=== PATIENT | male | born 1975 | race Caucasian/White ===

== ENCOUNTER 2020-08-24 14:32 | Outpatient (REF) | payer OTHER, SELFPAY ==
--- NOTE | 2020-08-24 | US_ITS ---
EXAMINATION: US RETROPERITONEAL LIMITED (RENAL ONLY) CLINICAL INFORMATION: Cyst of kidney. COMPARISON: Ultrasound kidneys and bladder 08/14/2019. TECHNIQUE: Real-time imaging of the kidneys. FINDINGS: RIGHT KIDNEY: 11.6 x 5.9 x 5.9 cm (SAG x AP x TRV). The kidney is normal in size, contour, and echogenicity. Renal cortical thickness is normal. No calculi or focal parenchymal lesions. No hydronephrosis. LEFT KIDNEY: 11.4 x 5.8 x 5.4 cm (SAG x AP x TRV). The kidney is normal in size, contour, and echogenicity. Renal cortical thickness is normal. No calculi or focal parenchymal lesions. No hydronephrosis. US/US renal BI IMPRESSION: Unremarkable renal ultrasound.
== END 2020-08-24 14:33 | disposition home or self-care (01) ==
LOC: HO.HMGCX 14:32
PROVIDERS: PCP Nurse Practitioner Family; Visit Provider Urology
DX: N28.1 Cyst of kidney, acquired (principal)
CPT/HCPCS: 76775

== ENCOUNTER → 2020-09-29 09:02 | Outpatient (BNVA) | payer OTHER, SELFPAY | PROVIDERS: PCP Nurse Practitioner Family; Referring Provider Nurse Practitioner Family; Visit Provider Urology | DX: Z76.89 Persons encountering health services in other specified circumstances (principal) ==

== ENCOUNTER 2020-10-20 09:09 | Outpatient (REF) | payer OTHER, SELFPAY ==
--- NOTE | 2020-10-20 12:34 | XR_ITS ---
EXAMINATION: XR KNEE, BILATERAL XR KNEE, RIGHT CLINICAL INFORMATION: Pain in the knee COMPARISON: 07/02/2016 TECHNIQUE: AP standing view of both knees. Lateral and sunrise views of the right knee. FINDINGS: Right knee: No fracture or subluxation. Mild medial compartment joint space narrowing. Remaining compartmental joint spaces are maintained. Small marginal osteophytes are seen at all compartments. Evidence of prior ACL reconstruction. Small joint effusion noted. Left knee: On this single view there is mild narrowing of the medial compartment. No fracture or malalignment. XR/XR knee RT 2V IMPRESSION: Mild tricompartmental degenerative changes of the right knee. Small joint effusion. Evidence of prior ACL reconstruction.
--- NOTE | 2020-10-20 12:34 | XR_ITS ---
EXAMINATION: XR KNEE, BILATERAL XR KNEE, RIGHT CLINICAL INFORMATION: Pain in the knee COMPARISON: 07/02/2016 TECHNIQUE: AP standing view of both knees. Lateral and sunrise views of the right knee. FINDINGS: Right knee: No fracture or subluxation. Mild medial compartment joint space narrowing. Remaining compartmental joint spaces are maintained. Small marginal osteophytes are seen at all compartments. Evidence of prior ACL reconstruction. Small joint effusion noted. Left knee: On this single view there is mild narrowing of the medial compartment. No fracture or malalignment. 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 Small joint effusion. Evidence of prior ACL reconstruction.
== END 2020-10-20 09:10 | disposition home or self-care (01) ==
LOC: HO.HOSX 09:09
PROVIDERS: Visit Provider Orthopaedic Surgery
DX: M23.91 Unspecified internal derangement of right knee (principal); Z98.890 Other specified postprocedural states
CPT/HCPCS: 73560; 73565; 99202

== ENCOUNTER 2020-11-03 12:35 | Outpatient (REF) | payer OTHER, SELFPAY ==
--- NOTE | ~2020-11-03 | MR_ITS ---
EXAMINATION: MR KNEE WITHOUT CONTRAST, RIGHT CLINICAL INFORMATION: Knee pain status post ACL reconstruction. COMPARISON: MRI 07/29/2016 TECHNIQUE: MRI of the knee without contrast was performed using routine sequences on a high-field scanner. FINDINGS: MENISCI: Medial Meniscus: Again demonstrated is a bucket-handle tear of the medial meniscus. Portions of the posterior horn remnant are markedly attenuated. Overall similar appearance. Lateral Meniscus: Intact LIGAMENTS: Cruciate: Complete or near complete chronic tear of the ACL graft with scarring or displaced graft fibers projecting anteriorly. This also is similar to previous. The posterior cruciate ligament appears intact. Collateral: Intact EXTENSOR MECHANISM: Intact ARTICULAR CARTILAGE/BONE: Patellofemoral Compartment: Fissuring of the cartilage of the medial patellar facet is similar. A chondral fissure of the lateral facet is less conspicuous. Medial Compartment: There is a new area of articular cartilage irregularity measuring approximately 1.4 x 0.8 cm involving the posterior weightbearing medial femoral condyle which is new. A portion of this appears full thickness, with underlying bone marrow edema. Small marginal osteophytes. Lateral Compartment: Small marginal osteophytes. JOINT FLUID AND BURSAE: Small joint effusion. The ganglion extending along the popliteus muscle on the prior study has decreased in size. 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 Redemonstration of a bucket handle tear of the medial meniscus. There is a new area of cartilage loss and irregularity with underlying marrow edema of the posterior weightbearing medial femoral condyle. 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 Small joint effusion.
== END 2020-11-03 12:36 | disposition home or self-care (01) ==
LOC: HO.MRI 12:35
PROVIDERS: Visit Provider Orthopaedic Surgery
DX: M23.90 Unspecified internal derangement of unspecified knee (principal); Z98.890 Other specified postprocedural states
CPT/HCPCS: 73721

== ENCOUNTER → 2020-11-16 11:29 | Outpatient (BNVA) | payer OTHER, SELFPAY | PROVIDERS: PCP Nurse Practitioner Family; Visit Provider Orthopaedic Surgery ==

== ENCOUNTER 2020-12-08 07:22 | Day surgery (SDC) | payer OTHER, SELFPAY ==
--- NOTE | 2020-12-06 15:32 | HO.ANESPROP2 ---
Documented by User: Ekta Delcid 12/06/20 15:33 HPI - Anesthesia Eval Consult details Narrative: 45yo M for Right Knee Arthroscopy [facility]LY [facility] Active Problems Active Problems: All Active Problems (Updated 11/21/20 @ 08:24 by Hans Hatch MD) Deficiency of anterior cruciate ligament of right knee (Acute) Tear of medial meniscus of right knee (Acute) Knee locking (Acute) History of repair of ACL (Acute) Renal cyst (Acute) Past Medical History Medical History Knee locking Family History Family History Father Heart disease Pneumonia Mother Arthritis Brother No problems noted. Brother No problems noted. Brother No problems noted. Sister No problems noted. Surgical History Surgical History H/O right knee surgery History of mandibular surgery History of repair of ACL Social History Social History Alcohol intake: current Smoking Status: Current every day smoker Cigarettes Per Day: 20 Use of substances other than those prescribed or required for medical reasons: Yes Substance Use Frequency: Occasionally Advance Directives: No Advance Directives Information Provided: Yes Current occupational status: employed and unemployed Current occupation: right handed Meds Allergies Allergy/AdvReac Type Severity Reaction Status Date / Time No Known Allergies Allergy Verified 12/08/20 07:38 [No Known Allergies*] Home Medications Medication Instructions Recorded Confirmed Last Taken Type ibuprofen 600 mg tablet 600 mg PO Q6H PRN 10/20/20 12/01/20 Unknown History sildenafil 1 tab PO DAILY PRN 12/01/20 12/01/20 Unknown History Exam Exam Date and Time: December 06, 2020 153 Assessment and Plan Assessment Anesthesia Assessment: Chart Reviewed Documented by User: Joreg Diaz MD 12/08/20 09:11 [facility] Past Medical History Medical History Knee locking Family History Family History Father Heart disease Pneumonia Mother Arthritis Brother No problems noted. Brother No problems noted. Brother No problems noted. Sister No problems noted. Surgical History Surgical History H/O right knee surgery History of mandibular surgery History of repair of ACL Social History Social History Alcohol intake: current Smoking Status: Current every day smoker Cigarettes Per Day: 20 Use of substances other than those prescribed or required for medical reasons: Yes Substance Use Frequency: Occasionally Advance Directives: No Advance Directives Information Provided: Yes Current occupational status: employed and unemployed Current occupation: right handed Meds Allergies Allergy/AdvReac Type Severity Reaction Status Date / Time No Known Allergies Allergy Verified 12/08/20 07:38 [No Known Allergies*] Home Medications Medication Instructions Recorded Confirmed Last Taken Type ibuprofen 600 mg tablet 600 mg PO Q6H PRN 10/20/20 12/01/20 Unknown History sildenafil 1 tab PO DAILY PRN 12/01/20 12/01/20 Unknown History Exam Airway Mallampati Class: II TM Dist: >3cm Neck ROM: Full Loose/Missing/Broken Teeth: No Heart: RRR Other: thick wiggins Assessment and Plan Assessment Anesthesia Assessment: Anesthesia Plan Discussed and Chart Reviewed Final Anesthetic Review NPO: Yes ASA Class: II Final Preanesthetic Review: No Changes in Pt Med Stat, Meds/Allgs Chart Reviewed, Consent Obtained/Reviewed and Anes Risks/Benef Reviewed Patient Risk: Intermediate Procedure Risk: Low Anesthetic Plan Anesthetic Plan: GA Disposition: Standard PACU
[2020-12-08] VITALS (7 sets, daily range): BP systolic 112–132; BP diastolic 81–98; PULSE 73–84; RESP 16; TEMP 36.1–36.6; O2SAT 95–97; BMI 28.8
[2020-12-08] MEDS: Lactated Ringers 1,000 ML 100 ML IVCONT (08:17)
--- NOTE | 2020-12-08 09:51 | MHC.SHP ---
Pre-Procedural Eval Section A The patient is an INPATIENT: No Changes since office visit: No Cold of Flu in the past 2 weeks, No New Medical Problems, No Changes in Medication and No Patient answered all questions The History & Physical has been completed within 30 days and I have reviewed it.: Yes Section B Chief Complaint: meniscus tear Allergies: Allergies Allergy/AdvReac Type Severity Reaction Status Date / Time No Known Allergies Allergy Verified 12/08/20 07:38 [No Known Allergies*] Plan I have reviewed the history and physical and performed a pertinent physical examination on my patient. No changes have occurred unless specified.
--- NOTE | 2020-12-08 09:56 | W.PM.OPN ---
Operative Note Operative Note Date of Service: 12/08/20 Narrative: ARTHROSCOPIC SURGERY NOTE SURGEON: Dr Maxwell (Josseline) [employer] COMPENSATION VICE PRESIDENT: Christine HIGGINS PREOP DIAGNOSIS: ACL deficient right knee with medial meniscal tear was right POSTOP DIAGNOSIS: Postop diagnosis same. Grade 3 injury medial femoral condyle right knee OPERATIVE PROCEDURE: Arthroscopic partial medial meniscectomy and resection of bucket-handle tear right knee. Debridement ACL CLINICAL NOTE: This gentleman originally injured his knee a number of years ago. At that time he had an MRI which demonstrated a bucket-handle tear as well as an ACL tear. However due to insurance reasons he was unable to follow-up. He has recently returned with feelings of instability and pain inability to always straight his knee. He had a repeat of his MRI which demonstrated the same findings. Therefore after explaining risks benefits and alternatives and answering all his questions to his which care procedure MOTION: Full range of motion STABILITY: Grade 1 grade anterior drawer minimal pivot shift preoperative. Postoperative 1-2 with soft endpoint for anterior drawer. Mildly positive pivot shift. Collateral ligaments intact this is Right his OPERATIVE DETAILS PREPARATION: GA, STANDARD TECHNIQUE, tourniquet E to 300 mm of mercury for 16 minutes SURGICAL TIME-OUT: Patient identified; procedure confirmed; site confirmed. Medical and allergy history reviewed. No preoperative antibiotics. No DVT prophylaxis. All other items discussed and agreed upon. INCISIONS: Superolateral, inferolateral, inferomedial stab incisions SYNOVIUM: Normal SYNOVIAL FLUID: Clear MEDIAL COMPARTMENT: There was a displaced bucket-handle tear of the medial meniscus that went into the intercondylar notch region. This was obviously chronic. Using a combination of handheld cutters and power shaver the bucket-handle tear was removed. The remaining meniscus was present and contoured to stable. The medial femoral condyle had large area of grade 3 injury over the weight-bearing surface. There was grade 2 softening of the tibial articular surface. INTERCONDYLAR NOTCH: Obvious chronic ACL tear. This was debrided it removed. The PCL was palpated intact LATERAL COMPARTMENT: The lateral meniscus tibial and femoral articular surfaces popliteus tendon were all stable and intact. ANTERIOR COMPARTMENT: Small area of grade 3 wear of the medial facet of the patella femoral sulcus intact. Medial lateral gutters clear. suprapatellar pouch clear CLOSURE: 30 cc of 0.25% Marcaine with epinephrine injected in the knee. Steri-Strips and sterile dressing then applied. RECOMMENDATIONS: 1)Restore motion strength 2)Resume activities as tolerated 3)Discharge today with prescription for analgesic 4)Follow up in the office in 10-14 days
[2020-12-08] MEDS: ondansetron HCL 4 MG/2 ML VIAL IVPUSH (10:07)
[2020-12-08] MEDS: HYDROmorphone HCl 0.5 MG/0.5 ML SYRINGE 0.25 MG IVPUSH (10:10)
[2020-12-08] MEDS: oxyCODONE HCl Immed Release 5 MG TABLET PO (10:33)
== END 2020-12-08 11:20 | disposition home or self-care (01) ==
PROVIDERS: PCP Nurse Practitioner Family; Visit Provider Orthopaedic Surgery
PROC: (CPT 29870; principal; 2020-12-08 09:20)
DX: S83.241A Other tear of medial meniscus, current injury, right knee, initial encounter (principal); S83.211A Bucket-handle tear of medial meniscus, current injury, right knee, initial encounter; S83.511A Sprain of anterior cruciate ligament of right knee, initial encounter; M23.8X1 Other internal derangements of right knee; M17.11 Unilateral primary osteoarthritis, right knee; X58.XXXA Exposure to other specified factors, initial encounter; Y93.9 Activity, unspecified; Y92.9 Unspecified place or not applicable; Y99.8 Other external cause status; F17.210 Nicotine dependence, cigarettes, uncomplicated
CPT/HCPCS: 29881; J0131; J1100; J1170; J1885; J2405; J3010

== ENCOUNTER → 2020-12-20 08:40 | Outpatient (BNVA) | payer OTHER, SELFPAY | PROVIDERS: PCP Nurse Practitioner Family; Visit Provider Orthopaedic Surgery | DX: Z48.89 Encounter for other specified surgical aftercare (principal) | CPT/HCPCS: 99212 ==

== ENCOUNTER → 2021-01-24 10:42 | Outpatient (BNVA) | payer OTHER, SELFPAY | PROVIDERS: PCP Nurse Practitioner Family; Visit Provider Orthopaedic Surgery | DX: Z48.89 Encounter for other specified surgical aftercare (principal) | CPT/HCPCS: 99212 ==

== ENCOUNTER 2021-02-23 14:08 | Outpatient (REF) | payer OTHER, SELFPAY | END 2021-02-23 14:09 | disposition home or self-care (01) | LOC: HO.LNP 14:08 | PROVIDERS: Visit Provider Hospitalist | DX: Z20.822 Contact with and (suspected) exposure to COVID-19 (principal); K52.9 Noninfective gastroenteritis and colitis, unspecified | CPT/HCPCS: U0003; U0005 ==